=== PATIENT | male | born 2000 | race Caucasian/White ===

== ENCOUNTER 2024-08-10 06:09 | Emergency (ER) | payer OTHER ==
[~2024-08-10] VITALS: Ht 177.8 cm; Wt 77.1 kg
[2024-08-10] MEDS ORDERED: ONDANSETRON HCL/PF 4 MG/2 ML VIAL ONE (06:45)
[2024-08-10] MEDS ORDERED: LORAZEPAM INJ 2 MG/ML VIAL ONE (06:46)
[2024-08-10] MEDS ORDERED: LEVETIRACETAM (500MG) 500 MG/5 ML VIAL IV ONE (06:47)
[2024-08-10] MEDS: LORAZEPAM INJ 2 MG/ML VIAL IV ONE (06:48)
[2024-08-10] MEDS: LEVETIRACETAM (500MG) 1,000 MG in IV NS 0.9% 90 ML IV STA (06:48)
[2024-08-10] MEDS: ONDANSETRON HCL/PF 4 MG/2 ML VIAL IVP ONE (06:48)
[2024-08-10] MEDS: IV NS 0.9% 1,000 ML BAG IV ONE (06:48)
[2024-08-10 06:56] LABS: BASOPHILS % (AUTO) 0.4 % (0.0-2.0); EOSINOPHILS # (AUTO) 0.1 K/uL (0.0-0.7); EOSINOPHILS % (AUTO) 1.8 % (0.0-6.0); HEMATOCRIT 45 % (39-51); HEMOGLOBIN 15.3 g/dL (13.5-17.5); LYMPHOCYTES # (AUTO) 0.9 K/uL (0.8-4.8); LYMPHOCYTES % (AUTO) 20.8 % (20.0-44.0); MEAN CORPUSCULAR HEMOGLOBIN 33 PG (26.0-33.0); MEAN CORPUSCULAR HGB CONC 34 g/dl (31.0-36.0); MEAN CORPUSCULAR VOLUME 96 fL (80-96); MONOCYTES # (AUTO) 0.4 K/uL (0.1-1.30); PLATELET COUNT (AUTO) 172 K/uL (150-450); RED BLOOD CELL COUNT(AUTO) 4.69 MIL/uL (4.5-6.0); RED CELL DISTRIBUTION WIDTH 14.4 % (11.5-15.0); WHITE BLOOD COUNT (AUTO) 4.4 K/uL (4.3-11.0)
[2024-08-10 07:01] LABS: CALCIUM, SERUM 9.2 mg/dL (8.5-10.1); CARBON DIOXIDE 25 mmol/L (21-32); CHLORIDE 102 mmol/L (98-107); CREATININE 0.9 mg/dL (0.6-1.3); GLUCOSE 259 mg/dL (74-106); POTASSIUM 4.1 mmol/L (3.5-5.1); SODIUM SERUM 142 mmol/L (136-145); UREA NITROGEN, BLOOD 11 mg/dL (7-18)
[2024-08-10 07:02] LABS: ALCOHOL, BLOOD 12 mg/dL (0-10); LIPASE 8 U/L (16-77)
[2024-08-10 07:08] LABS: ALANINE AMINOTRANSFERASE 110 U/L (12-78); ALBUMIN 4.4 g/dL (3.4-5.0); ALKALINE PHOSPHATASE 92 U/L (46-116); ASPARTATE AMINOTRANSFERASE 131 U/L (15-37); BILIRUBIN,DIRECT 0.3 mg/dL (0.0-0.2); BILIRUBIN,TOTAL 1.1 mg/dL (0.2-1.0); TOTAL PROTEIN, SERUM 8.3 g/dL (6.4-8.2)
[2024-08-10] MEDS ORDERED: ONDA4TAB5 PO (07:25)
[2024-08-10] MEDS ORDERED: LEVE500T9 PO (07:25)
[2024-08-10 07:26] LABS: ACETONE, SERUM NEGATIVE (NEGATIVE)
[2024-08-10 08:59] VITALS: BP 139/78; TEMP 98.6; O2SAT 99
== END 2024-08-10 09:00 | disposition home or self-care (01) ==
LOC: ER 06:16
DX: F10.239 Alcohol dependence with withdrawal, unspecified (principal); F41.9 Anxiety disorder, unspecified; R07.89 Other chest pain; R11.2 Nausea with vomiting, unspecified; R10.84 Generalized abdominal pain; R19.7 Diarrhea, unspecified; E11.9 Type 2 diabetes mellitus without complications; F41.1 Generalized anxiety disorder; F10.20 Alcohol dependence, uncomplicated; G40.909 Epilepsy, unspecified, not intractable, without status epilepticus; K70.9 Alcoholic liver disease, unspecified; Z79.4 Long term (current) use of insulin; Z79.899 Other long term (current) drug therapy; Y90.0 Blood alcohol level of less than 20 mg/100 ml
CPT/HCPCS: 99285; 96365; 96361; 96375; 93005; 82803; 71045; 85025; 80048; 82010; 83690; 80076; 36415; 84484; 82962; 80320; J2060; J2405; J7030 ×2; J1953 ×2; G0480